=== PATIENT | female | born 1990 | race Caucasian/White ===

== ENCOUNTER 2020-02-01 12:51 | Emergency (ER) | payer OTHER, SELFPAY ==
[2020-02-01 12:52] VITALS: BP 149/87; PULSE 133; RESP 18; TEMP 36.6; O2SAT 97; BMI 34.2
[2020-02-01] MEDS: Ondansetron 4 MG/2 ML Vial IV (14:35)
[2020-02-01] MEDS: 0.9% Normal Saline 1,000 ML 1000 ML IV ×2 (14:35→16:09)
[2020-02-01] MEDS: Dicyclomine 20 MG/2 ML Vial IM (14:36)
--- NOTE | 2020-02-01 14:38 | ED.VIS.GI ---
History of Present Illness Chief Complaint: Nausea/Vomiting/Diarrhea Narrative: Patient presenting for evaluation secondary to nausea vomiting and diarrhea. Patient reports that over the course of the last day or so she has had a precipitous onset initially of diarrhea, and then of nausea and vomiting. Patient reports multiple episodes of non-mucousy nonbloody stools, as well as multiple episodes of nonbloody nonbilious emesis. Patient reports that she now is having lightheadedness due to an inability to keep down fluids. Patient denies that she is having any sort of fever. No sick contacts. Patient denies persistent abdominal pain but she does get crampy abdominal pain anytime she eats or drinks and is about to vomit. Review of systems otherwise negative. Past Medical History - Allergies and Home Meds Allergies/Adverse Reactions: Allergies amoxicillin [Amoxicillin] Allergy (Verified 02/01/20 12:54) Rash Penicillins Allergy (Verified 02/01/20 12:54) Rash shellfish derived Allergy (Verified 02/01/20 12:54) Shortness of breath Primary Care Physician: Care Physician,No Primary [Primary Care Provider] - Smoking Status: Never smoker Review of Systems All systems negative except as indicated General: Reports: Malaise Eyes: Denies: Visual changes - bilaterally, Diplopia ENT: Denies: Rhinorrhea, Sore throat Cardiovascular: Denies: Chest pain, Palpitations Respiratory: Denies: Dyspnea, Cough, Dyspnea on exertion Gastrointestinal: Reports: Abdominal pain, Nausea, Vomiting, Diarrhea Genitourinary: Denies: Dysuria, Hematuria, Frequency Musculoskeletal: Denies: Back pain, Extremity Pain Skin: Denies: Rash, Wounds Neurological: Denies: Headache, Weakness, Numbness Physical Exam Vital Signs/Narrative: Vital Signs Temp Pulse Resp BP Pulse Ox 02/01/20 12:52 97.8 F 133 H 18 149/87 H 97 General: Well nourished, Well developed, No Acute Distress Head: Normocephalic, Atraumatic Eyes: Perrl, EOMI ENT: No rhinorrhea, Dry mucous membranes Neck: Supple, Nontender Cardiovascular: Regular rhythm, No murmurs, Tachycardia Respiratory: No distress, CTA bilaterally, Chest nontender Abdomen: Soft, Nontender, Nondistended, Normal bowel sounds Back: Nontender, Normal Inspection Extremities: Nontender, No edema Skin: Normal color, No rash Neurological: Alert, Oriented x3, Cranial nerves II-XII grossly intact, Normal Strength, Normal Sensation Psychological: Normal affect, Normal Mood Diagnostic/Tx/Re-eval Laboratory Data 02/01/20 02/01/20 02/01/20 14:38 14:38 14:38 WBC 18.4 H RBC 5.23 Hgb 14.9 Hct 43.4 MCV 83.0 MCH 28.5 MCHC 34.3 RDW Std Deviation 39.5 RDW Coeff of Mimi 14.8 H Plt Count 344 MPV 9.3 Immature Gran % (Auto) 0.500 Neut % (Auto) 76.1 H Lymph % (Auto) 17.9 L [place] % (Auto) 4.8 Eos % (Auto) 0.5 Baso % (Auto) 0.2 Absolute Neuts (auto) 14.0 H Absolute Lymphs (auto) 3.29 Nucleated RBC % 0 Sodium 137 Potassium 3.7 Chloride 104 Carbon Dioxide 26.0 Anion Gap 7 BUN 10 Creatinine 1.02 Estim Creat Clear Calc 80.61 Est GFR (MDRD) Af Amer 81 Est GFR (MDRD) Non-Af 67 BUN/Creatinine Ratio 9.8 L Glucose 107 H Calcium 9.1 Total Bilirubin 0.60 AST 10 L ALT 19 Alkaline Phosphatase 112 Total Protein 8.0 Albumin 3.3 Globulin 4.7 H Albumin/Globulin Ratio 0.7 L Lipase 66 L Serum , Qual NEGATIVE - Medical Decision Making Patient presenting for evaluation secondary to diarrhea nausea and vomiting. Physical exam shows diffuse abdominal pain, but the patient does not seem to have localization of her pain, peritonitis, rigidity, or need for imaging at this time. IV was established patient was given Zofran and Bentyl. She was given IV fluids. Patient was noted to have a leukocytosis of 18. CMP unremarkable, lipase found to be negative. Repeat evaluation of the patient at 1500 does show some symptomatic improvement. Patient was given oral fluids for p.o. challenge, she continues to not have localization of her pain. I do not feel that CT imaging is indicated. Patient will be followed up on by the oncoming physician and should she continue to have nonlocalized pain, and a nonsurgical abdomen she will be discharged with a course of Zofran and Bentyl. ED Disposition - Plan for ED Patient: Disposition: Home or Assisted Living Diagnosis: Gastroenteritis Instructions: ED Viral Gastroenteritis Prescriptions: Dicyclomine HCl [Bentyl] 20 mg PO TIDAC #20 cap Prescription Printed Ondansetron [Zofran Odt] 4 mg PO Q8H PRN PRN #10 tab PRN Reason: Nausea Prescription Printed Additional Instructions: Followup with your PCP Return if your pain localized to one side or another, or if you are unable to keep down fluids.
[2020-02-01 14:43] LABS: Absolute Lymphocyte Count 3.29 X10^3/uL (0.83-4.51); Basophil# 0.03 X10^3/uL; Basophil% 0.2 % (0-1); Eosinophils% 0.5 % (0-5); Hematocrit 43.4 % (37-47); Hemoglobin 14.9 g/dL (12.0-15.0); Lymphocyte # 3.29 X10^3/ul (4.0); Lymphocyte % 17.9 % (19-41); Mean Corp Hgb Conc 34.3 g/dL (32-36); Mean Corpuscular Hgb 28.5 pg (27.0-32.0); Mean Platelet Vol. 9.3 fl (6.2-12.0); Monocyte# 0.88 X10^3/uL; Monocyte% 4.8 % (0-10); NRBC Flagged by Analyzer 0 % (0-5); Neutrophil # 14.03 X10^3/uL (2.7-7.7); Neutrophil % 76.1 % (47-70); Platelet Count 344 K/mm3 (150-450); RBC Distribution Width CV 14.8 % (11.6-14.6); RBC Distribution Width SD 39.5 fl (35.1-43.9); Red Blood Count 5.23 M/mm3 (4.2-5.4); White Blood Count 18.4 K/mm3 (4.4-11.0)
[2020-02-01 14:51] LABS: Internal QC Validated? YES +Cl - CLEAR BKGD
[2020-02-01 14:52] LABS: Pregnancy, Serum, hCG Quali. NEGATIVE Negative
[2020-02-01 14:58] LABS: ALB/GLOB Ratio 0.7 RATIO (0.9-2.4); AST(SGOT) 10 U/L (15-37); Alanine Aminotransfer ALT/SGPT 19 U/L (13-56); Albumin, Serum 3.3 g/dL (3.2-5.0); Alkaline Phosphatase 112 U/L (45-117); Anion Gap 7 (5-15); BUN 10 mg/dL (7-18); BUN/Creat Ratio 9.8 RATIO (10-20); Calcium,Total 9.1 mg/dL (8.5-10.1); Chloride 104 mmol/L (98-107); Creatinine, Serum 1.02 mg/dL (0.55-1.02); EST Glomerular Filtration Rate 67 mL/min (>60); Est Glom Filt Rate - Afr Amer 81 mL/min (>60); Estimated Creatinine Clearance 80.61 ml/min; Globulin 4.7 g/dL (2.2-4.2); Glucose 107 mg/dL (74-106); Lipase 66 U/L (73-393); Potassium 3.7 mmol/L (3.5-5.1); Sodium Level 137 mmol/L (136-145)
--- NOTE | 2020-02-01 15:48 | CT_ITS ---
STUDY: CT ABDOMEN AND PELVIS WITHOUT CONTRAST REASON FOR EXAM: Female, 29 years old. LOW ABD PAIN, UMBILICAL PAIN, VOMITING RADIATION DOSAGE (If Supplied By Facility): CTDIvol = ( 14.43 ) mGy, DLP = ( 747.58 ) mGycm TECHNIQUE: Transaxial images were obtained from the dome of the diaphragm to the symphysis pubis without oral contrast, and without intravenous contrast. Sagittal and coronal images were reconstructed. Individualized dose optimization techniques were used for this CT. COMPARISON: None. FINDINGS: The visualized lung bases are unremarkable. The visualized portions of the heart are within normal limits. Normal liver. Normal gallbladder and extrahepatic biliary system. Normal spleen. Normal pancreas. Normal bilateral adrenal glands. Normal right kidney. Normal left kidney. There is a small hiatal hernia. Normal small intestine. Normal colon. The appendix is visualized and appears normal. Normal abdominal aorta. Normal inferior vena cava. Normal retroperitoneum. Normal urinary bladder. Normal abdominal wall. Normal osseous structures. CT/Abdomen/Pelvis without Cont IMPRESSION: Normal unenhanced CT of the abdomen and pelvis. Electronically Signed: Abran Pennington MD at 16:31 EDT Tel , Service support ,
[2020-02-01] MEDS: DiphenhydrAMINE 50 MG/ML Syringe IV (16:10)
[2020-02-01] MEDS: Metoclopramide 10 MG/2 ML Vial IV (16:10)
[2020-02-01 17:16] VITALS: RESP 18
--- NOTE | 2020-02-01 18:02 | ED.DCSUM_ITS ---
- ER Visit Summary Date of Service: 02/01/20 This patient was checked out to me with period of observation pending. She was unable to take much in the way of p.o. fluids due to continued nausea. She also reports that she has diffuse itching. Physical Examination: Repeat abdominal exam shows to have mild tenderness to palpation in the right lower quadrant, suprapubic region, and left lower quadrant. No guarding, rebound, or peritoneal signs. Test Results: Clinical Impression(s) from Imaging Studies Abdomen/Pelvis CT 02/01/20 15:48 IMPRESSION: Normal unenhanced CT of the abdomen and pelvis. Electronically Signed: Abran Pennington MD at 16:31 EDT Tel , Service support , Emergency Department Course and Treatment: Patient was given Dilaudid liter of normal saline. She was given Benadryl for the itching and that has resolved. She was given Reglan reports her nausea is much improved. Treatment Plan: It is unclear whether the patient had a reaction to Bentyl or Zofran. The Reglan seemed to work well. She be given this prescription for Reglan instructed to follow-up with her primary care physician 1 to 2 days if not improving. Return to the emergency department for any worsening symptoms. Disposition: To home in improved and stable condition. Impression: 1. Vomiting/diarrhea. This note was generated with [email or web address] dictation software. It may contain incorrect words, spelling, and punctuation that were not noted in review of the chart prior to signing ED Disposition - Plan for ED Patient: Disposition: Home or Assisted Living Diagnosis: Gastroenteritis Instructions: ED Viral Gastroenteritis Prescriptions: Metoclopramide [Reglan] 10 mg PO 4X/DAY PRN #20 tablet PRN Reason: Nausea Referrals: Doctor,Your [STAFF PHYSICIAN] - 1-2 Days if not improving
== END 2020-02-01 18:46 | disposition home or self-care (01) ==
PROVIDERS: Emergency Provider Emergency Medicine
DX: K52.9 Noninfective gastroenteritis and colitis, unspecified (principal)
CPT/HCPCS: 74176; 80053; 83690; 84703; 85025; 96361; 96372; 96374; 96375; 99283; J7030; A4216; J2405